=== PATIENT | female | born 1980 | race Hispanic/Latino ===

== ENCOUNTER 2017-10-18 18:24 | Emergency (ER) | payer MEDICAID | END 2017-10-18 19:18 | disposition home or self-care (01) | LOC: EDH 18:24 | DX: O99.513 Diseases of the respiratory system complicating pregnancy, third trimester (principal); J06.9 Acute upper respiratory infection, unspecified; Z3A.32 32 weeks gestation of pregnancy | CPT/HCPCS: 87804 ==

== ENCOUNTER 2024-05-21 11:20 | Emergency (ER) | payer MEDICAID ==
[~2024-05-21] VITALS: Ht 157.5 cm; Wt 70.8 kg
[~2024-05-21 11:20] MED LIST: PREN-154 PO
[2024-05-21 12:27] LABS: BASOPHILS # (AUTO) 0.07 K/uL (0.00-0.20); BASOPHILS % (AUTO) 0.5 % (0.0-5.0); EOSINOPHILS # (AUTO) 0.03 K/uL (0.00-0.70); EOSINOPHILS % (AUTO) 0.2 % (0.0-8.0); HEMATOCRIT 41.2 % (36-48); IMMATURE GRANULOCYTE ABSOLUTE 0.05 K/uL (0-1); LYMPHOCYTES # (AUTO) 3.9 K/uL (1.0-4.8); LYMPHOCYTES % (AUTO) 28.5 % (21.0-51.0); MEAN CORPUSCULAR HEMOGLOBIN 30.6 pg (27.0-33.0); MEAN CORPUSCULAR HGB CONC 33.3 g/dL (32.0-36.0); MONOCYTES % (AUTO) 6.9 % (3.0-13.0); NEUTROPHILS # (AUTO) 8.8 K/uL (1.8-7.7); NEUTROPHILS % (AUTO) 63.5 % (40.0-77.0); PLATELET COUNT (AUTO) 347 K/uL (130-400); RED BLOOD CELL COUNT(AUTO) 4.48 MIL/uL (4.00-5.50); RED CELL DISTRIBUTION WIDTH 13.3 % (11.0-15.5); WHITE BLOOD COUNT (AUTO) 13.8 K/uL (4.8-10.8)
[2024-05-21 12:48] LABS: CREATININE 0.8 mg/dL (0.5-1.0); POTASSIUM 3.5 mmol/L (3.5-5.1)
--- NOTE | 2024-05-21 13:50 | EKG ---
[facility] Test Date: 2024-05-21 Test Time: 12:56:00 Pat Name: ALEJANDRO JUSTIN Department: ED Room: Gender: F [employer]: [id number] : 1980 Requested By: HANNAH HESS Order Number: [id number] Reading MD: Antonieta Norris Measurements Intervals [place] Rate: 77 P: 0 [place]: 145 QRS: -19 QRSD: 85 T: -13 QT: 371 QTc: 421 Interpretive Statements Sinus rhythm Low voltage, extremity leads No previous ECG available for comparison Electronically Signed On 05-22-2024 17:09:[address] MAGISTRATE by Antonieta Norris Please click the below link to view image of tracing.
--- NOTE | 2024-05-21 13:55 | ERN ---
ED Note History of Present Illness Stated Complaint: PAIN ON LEFT ARM Chief Complaint: Shoulder Injury/Pain Time Seen by MD: 11:28 Dictation: Patient comes in with left shoulder pain for two weeks. She has painful nails movement. It is painful palpation. No cuts scrapes lesions no fevers no chills Allergies: Coded Allergies: No Known Allergies (Unverified Allergy, Unknown, 12/03/17) Home Meds Reported Medications Vits #93/Iron Fum/FA ( Formula Tablet) 1 Each Tablet, 1 EACH PO DAILY, TAB 12/05/17 Past Medical History Past Medical History: Hypertension Surgical History: LMP: Apr 29, 2024 : 2 Para: 1 Aborts: 1 Review of System Dictation Constitutional: Negative for fever,chills, and weight loss Eyes: Negative for injury, pain,redness, and discharge ENT: Negative for injury,pain or swelling Cardiovascular: Negative for chest pain, palpitations, and edema Respiratory: Negative for shortness of breath, cough, and wheezing, Abdomen/GI: Negative for abdominal pain, nausea, vomiting, diarrhea, and constipation Back: Negative for injury and pain : Negative for injury, bleeding and discharge MS/Extremity: Negative for injury and deformity Skin: Negative for rash, and discoloration Neuro: Negative for headache, weakness, numbness, tingling, and seizure Psych: Negative for suicide ideation, homicidal ideation, and hallucinations Initial Vital Sign VS Vital Signs Date Time Temp Pulse Resp B/P (MAP) Pulse Ox O2 Delivery O2 Flow Rate FiO2 05/21/24 11:35 98.4 95 20 152/86 99 Room Air 0 Physical Exam Dictation General: awake, alert, NAD Head/Face: Normocephalic, atraumatic Eyes: PERRL, EOMI, vision at baseline ENT: oral cavity clear, TMs clear, no signs of infection Neck: Trachea midline, supple, no nuchal rigidity Cardiovascular: RRR, normal S1/S2, No MRGs, no JVD Respiratory: CTAB, no respiratory distress, No rales or wheezes Abdomen: Soft, non-tender, non-distended, normal bowel sounds, no guarding or rebound. Skin: Warm, dry, normal turgor, no rash MS/Extremity: Pulses equal, no cyanosis, neurovascular intact, FROM Neuro: COAx4, GCS 15, strength 5/5, CN 2-12 intact, normal cerebellar exam, normal gait, Psych: Normal behavior, mood, and affect normal Patient just on palpation of the left lateral shoulder. And some pain with motion of this Results (Laboratory/Radiology) Laboratory/Radiology Laboratory Tests Test 05/21/24 12:18 White Blood Count 13.8 K/uL (4.8-10.8) H Red Blood Count 4.48 MIL/uL (4.00-5.50) Hemoglobin 13.7 g/dL (12.0-16.0) Hematocrit 41.2 % (36-48) Mean Corpuscular Volume 92.0 fL (79-99) Mean Corpuscular Hemoglobin 30.6 pg (27.0-33.0) Mean Corpuscular Hemoglobin Concent 33.3 g/dL (32.0-36.0) Red Cell Distribution Width 13.3 % (11.0-15.5) Platelet Count 347 K/uL (130-400) Mean Platelet Volume 10.2 fL (7.5-10.5) Immature Granulocyte % (Auto) 0.4 % (0-1) Neutrophils (%) (Auto) 63.5 % (40.0-77.0) Lymphocytes (%) (Auto) 28.5 % (21.0-51.0) Monocytes (%) (Auto) 6.9 % (3.0-13.0) Eosinophils (%) (Auto) 0.2 % (0.0-8.0) Basophils (%) (Auto) 0.5 % (0.0-5.0) Neutrophils # (Auto) 8.8 K/uL (1.8-7.7) H Lymphocytes # (Auto) 3.9 K/uL (1.0-4.8) Monocytes # (Auto) 1.0 K/uL (0.1-1.0) Eosinophils # (Auto) 0.03 K/uL (0.00-0.70) Basophils # (Auto) 0.07 K/uL (0.00-0.20) Absolute Immature Granulocyte (auto 0.05 K/uL (0-1) Nucleated Red Blood Cells 0.0 % (0.0-0.19) Sodium Level 138 mmol/L (136-145) Potassium Level 3.5 mmol/L (3.5-5.1) Chloride Level 102 mmol/L (101-111) Carbon Dioxide Level 27 mmol/L (21-32) Blood Urea Nitrogen 17 mg/dL (7-18) Creatinine 0.8 mg/dL (0.5-1.0) Glomerular Filtration Rate Calc 94 mL/min (>90) Random Glucose 111 mg/dL (70-105) H Total Calcium 8.9 mg/dL (8.5-10.1) Troponin I High Sensitivity < 4 ng/L (4-50) L ED Course ED Course Orders Procedure Category Date Status Time 12 Lead Ekg Tracing- EKG 05/21/24 Complete Technical 11:57 Troponin I High LAB 05/21/24 Complete Sensitivity 11:57 Cbc With Differential LAB 05/21/24 Complete 11:57 Basic Metabolic Panel LAB 05/21/24 Complete 11:57 Ketorolac PHA 05/21/24 Complete Tromethamine 15mg/Ml 12:00 Orphenadrine Citrate PHA 05/21/24 Complete (Norflex) 12:00 Current Medications Medications (Trade) Dose Ordered Sig/Jimena Route PRN Reason Start Time Stop Time Status Last Admin Dose Admin Ketorolac Tromethamine (toRADol) 15 mg ONCE ONCE IM 05/21/24 12:00 05/21/24 12:01 DC Orphenadrine Citrate (Norflex) 60 mg ONCE ONCE IM 05/21/24 12:00 05/21/24 12:01 DC Vital Signs Date Time Temp Pulse Resp B/P (MAP) Pulse Ox O2 Delivery O2 Flow Rate FiO2 05/21/24 11:35 98.4 95 20 152/86 99 Room Air 0 Medical Decision Making MDM MDM: Differential diagnosis: Considered ACS. Although very unlikely. Labs tests imaging are negative. Told the patient needs physical therapy and MRI stable for outpatient management Rationale: Tests considered and ordered secondary to shared decision making include: Previous outside records reviewed: Old ER visits. Risk of complication and/or morbidity or mortality of patient management: None Medications-Per medication reconciliation Need for hospitalization: Patient does not meet criteria for hospitalization. Need for emergency major/minor surgery: No There are no social concerns with this patient. Prescription drug management Prescriptions will include symptomatic care Patient's prior external medical records from other ER visits were reviewed by me as indicated. Prior testing and results from previous visits were reviewed. Prior tests were taken into account with medical decision making and resource utilization, independent historian/historians were used to obtain complete medical history. I independently interpreted the test that were performed, results were reviewed by me and considered findings on radiology if ordered. Medical management and examination interpretation discussions were had by me with other qualified healthcare professionals as indicated for the patient's care. DX & DISP Disposition: Discharge Departure Impression: Primary Impression: Shoulder pain Condition: Stable Referrals: MATHIEU ADKINS MD (PCP) DANTE SAMS MD May 21, 2024 13:55
[2024-05-21] MEDS ORDERED: METH-662 PO ×2 (14:01→14:05)
[2024-05-21] MEDS ORDERED: DICL100G60 TP (14:01)
[2024-05-21] MEDS: ketOROlac 15MG/ML VIAL (15MG/ML) IM ONE (14:21)
[2024-05-21] MEDS: ORPHENADRINE 60MG/2ML IM ONE (14:21)
[2024-05-21 14:42] VITALS: BP 134/85; PULSE 72; RESP 18; TEMP 98.7; O2SAT 98
== END 2024-05-21 14:45 | disposition home or self-care (01) ==
LOC: EDH 11:20
DX: M25.512 Pain in left shoulder (principal); I10 Essential (primary) hypertension; X58.XXXA Exposure to other specified factors, initial encounter; Y93.89 Activity, other specified; Y92.89 Other specified places as the place of occurrence of the external cause; Y99.8 Other external cause status
CPT/HCPCS: 99284; 84484; 80048; 85025; 36415; 96372 ×2; 93005; J1885; J2360